=== PATIENT | female | born 1985 | race Hispanic/Latino ===

== ENCOUNTER 2016-11-01 16:49 | Inpatient (IN) | payer OTHER ==
[~2016-11-01] VITALS: Ht 165.1 cm; Wt 93.4 kg
[~2016-11-01 16:49] MED LIST: DICLEGIS DR 101 EACH PO; VITAFOL ULTRA1 EACH PO; ZOFRAN ODT4 M1 PO; ZOFRAN ODT4 M1 SL
[2016-11-01 17:38] LABS: ABSOLUTE BASOPHIL COUNT 0 /CUMM (0.0-0.2); ABSOLUTE EOSINOPHIL COUNT 0.1 /CUMM (0.0-0.7); ABSOLUTE GRANULOCYTE CT 6.9 /CUMM (1.4-6.5); ABSOLUTE LYMPH COUNT 1.8 /CUMM (1.2-3.4); ABSOLUTE MONOCYTE COUNT 0.8 /CUMM (0.10-0.60); BASOPHIL % 0.3 % (0.0-2.0); EOSINOPHIL % 0.6 % (0-5); GRANULOCYTE % 71.6 % (42.2-75.2); HEMATOCRIT 38.2 % (37-47); MEAN CORPUSCULAR HGB 29.8 PG (27.0-31.0); MEAN CORPUSCULAR VOLUME 87.8 FL (81.0-99.0); MEAN PLATELET VOLUME 11.9 FL (7.4-10.4); PLATELET COUNT 135 /CUMM (130-400); RBC DISTRIBUTION WIDTH 14.2 % (11.5-14.5); RED BLOOD CELL CT 4.35 /CUMM (4.20-5.40); WHITE BLOOD CELL COUNT 9.6 /CUMM (4.8-10.8)
--- NOTE | 2016-11-01 18:06 | History & Physical ---
General Information and HPI MD Statement: I have seen and personally examined SE MOLINA and documented this H&P. The patient is a 31 year old female at [36] weeks and [1] days gestation who presented with a chief complaint of [severe PIH]. History of Present Illness: 31yo lmp 02/08/16 edc 11/28/16 with severe PIH diagnosed by bps 160s/100s proteinuria and HELLP syndrome. care complete and unremarkable until now. 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 EENTM: Denies: blurred vision, double vision, visual changes. Cardiovascular: Reports: edema. Respiratory: Reports: no symptoms. GI: Reports: no symptoms. Genitourinary: Reports: no symptoms. Musculoskeletal: Reports: no symptoms. Skin: Reports: no symptoms. Neurological/Psychological: Reports: no symptoms. Hematologic/Endocrine: Reports: no symptoms. Immunologic/Allergic: Reports: no symptoms. All Other Systems: Reviewed and Negative Exam & Diagnostic Data Obstetric Exam Wgt Gained During : 40 Pelvimetry: gynecoid Dilation (cm): 0 Effacement (%): 0 Station: 0 Membranes: intact Fluid: unknown Fundal Height (cm): 37 Multiple Gestation? No Contractions: none Infant #1 - FHR Baseline: 140 Category: 1 Estimated Weight: 6.5 Presentation: cephalic Patient for Induction? Yes Berumen Score Berumen Score Response Value Cervix Position: anterior 2 Cervix Consistency: medium 1 Cervix Effacement: 0-30% 0 Cervix Dilation: closed 0 Total 3 Physical Exam: HEENT: NCAT Chest: CTA CV: nl S1S2 Abd: gravid, cephalic, 6.5 Ext: +3 edema Neuro: 2+ DTR Labs Blood Type & Rh: O pos Antibody Screen: Neg Hct/Hgb & Platelets #1: Hct/Hgb & Platelets #2: 183 Rubella: imm VDRL #1: nr VDRL #2: nr HbsAg: neg HIV #1: neg HIV #2 neg 1 Hr P Group B Strep: neg Initial Ultrasound: wnl Anatomy Ultrasound: wnl Ultrasound for EFW: na Genetic Testing: neg Assessment/Plan Assessment/Plan: severe PIH 36 weeks poor berumen score miso cervical ripening MgSO4 As Ranked By This Provider Problem List: 1. Pre-eclampsia, severe, antepartum Core Measures/Miscellaneous Hollins Catheter Date In: 11/01/16 Still Needed? Yes Venous Thromboembolism VTE Risk Factors: / VTE Contraindications: No Contraindications VTE Diagnosis: No VTE Type: NONE VTE Confirmed by (Test): NONE Beta Kishore Is Beta Kishore a Home Med? No If Yes, Was This Ordered Today? No Antibiotics Is Patient on Antibiotics? Yes If Yes: prophylaxis
--- NOTE | 2016-11-01 21:08 | PN- Obstetrical ---
Subjective Subjective: pt lightheaded on Magnesium; c/o headache Review of Systems: BPs 160s/110 labetolol 20mg iv x1 Objective Last 24 Hrs of Vital Signs/I&O 160s/110 Physical Exam: CTA DTRs 2+, +clonus Obstetric Exam Dilation (cm): 0 Effacement (%): 0 Station: 0 Membranes: intact Fluid: unknown Multiple Gestation? No Contractions: occ #1 - FHR Baseline: 140 Category: 1 Estimated Weight: 6.5 Presentation: cephalic Assessment/Plan Assessment/Plan severe PIH remote from delivery proceed with c/s; pt consents Problem List: 1. Pre-eclampsia, severe, antepartum
--- NOTE | 2016-11-01 21:56 | History & Physical ---
General Information and HPI MD Statement: I have seen and personally examined SE MOLINA and documented this H&P. The patient is a 31 year old F who presented with a patient stated chief complaint of [sever induced hypertension]. Source of Information: patient Exam Limitations: no limitations History of Present Illness: is a 31 yo women A2 at 36 weeks and 1 day, former smoker with PMHx. significant for narcolepsy, hernia s/p repair presented to childbirth center from clinic with a c/o sever induced hypertension. History was obtained from the patient, she report that she went today to her clinic for regular follow up, urine protein was checked and it was very high so, she was sent to Center for more evaluation. She report that she was seen at clinic last week, at that time her urine protein was not that high. Patient following regularly with clinic, her BP was within normal, she denies any high blood pressure prior to this pregancy. Patient also report noticing that she get swollen over the last week, which excessively getting worse, her symptoms also include sever nausea and vomiting over the last 2 days, associated with right back pain, she also feels chest tightness, headache and vision changes during the encounter. She report candidal infection during this . She denies any complication with her last delivery which was NVD at term. She quite smoking prior to this pregnacy, she denies any alcohol or drugs. Allergies/Medications Allergies: Coded Allergies: latex (RASH 06/09/16) Home Med list Doxylamine/Pyridoxine HCl (Diclegis Dr 10-10 MG Tablet) 10 MG-10 MG TABLET.DR 2 TAB PO QPM hyperemesis gravidarum Ondansetron (Zofran Odt) 4 MG TAB.RAPDIS 1 TAB SL TID PRN nasuea Pnv#67/Iron Ps/FA Cmb#1/Dha (Vitafol Ultra Softgel) 29 MG IRON-1 MG-200 MG CAPSULE 1 CAP PO DAILY (Reported) Past History Medical History Neurological: NONE EENT: NONE Cardiovascular: NONE Respiratory: NONE Gastrointestinal: NONE Hepatic: NONE Renal: NONE Musculoskeletal: NONE Psychiatric: NONE Endocrine: NONE Blood Disorders: NONE Cancer(s): NONE Other Medical Hx: Narcolepsy Surgical History Surgical History: non-contributory Past Family/Social History Family History Relations & Conditions if any FATHER FH: diabetes mellitus Psychosocial History Smoking Status: Former Smoker ETOH Use: denies use Illicit Drug Use: denies illicit drug use Employment History Employment Employed Profession/Employer Ban[employer] Review of Systems Review of Systems Constitutional: Reports: see HPI. EENTM: Reports: blurred vision. Respiratory: Reports: no symptoms. GI: Reports: no symptoms. Genitourinary: Reports: no symptoms. Musculoskeletal: Reports: back pain (right side). Neurological/Psychological: Reports: headache. Hematologic/Endocrine: Reports: no symptoms. All Other Systems: Reviewed and Negative Date of LMP: 02/08/16 Exam & Diagnostic Data Physical Exam General Appearance Alert, Oriented X3, Moderate Distress Skin No Rashes, No Breakdown, No Significant Lesion Skin Temp/Moisture Exam: Warm/Dry HEENT Atraumatic, PERRLA, EOMI, Mucous Membr. moist/pink Cardiovascular Normal S1, Normal S2, No Murmurs Lungs Clear to Auscultation, Normal Air Movement Neurological Reflexes 2+ Extremities Normal Pulses, edematous, +2 non-pitting Vascular Normal Pulses, Pulses Symmetrical Last 24 Hrs of Labs/Antoine: Laboratory Tests 11/01/16 1710: Ur Random Creatinine 94.1, U Random Total Protein 1071 H, Protein/Creatinin Ratio 11.3 H 11/01/16 1710: Estimated GFR > 60, Uric Acid 5.8, Total Bilirubin 0.5, Direct Bilirubin 0.2, AST 21, ALT 24, Lactate Dehydrogenase 663 H, CBC w Diff NO MAN DIFF REQ, RBC 4.35, MCV 87.8, MCH 29.8, RDW 14.2, MPV 11.9 H, Gran % 71.6, Lymphocytes % 18.9 L, Monocytes % 8.6, Eosinophils % 0.6, Basophils % 0.3, Absolute Granulocytes 6.9 H, Absolute Lymphocytes 1.8, Absolute Monocytes 0.8 H, Absolute Eosinophils 0.1, Absolute Basophils 0, PUBS MCHC 34.0, Urinalysis HEAVY H, Urine Color YEL, Urine Clarity CLEAR, Urine pH 6.0, Ur Specific [place] 1.020, Urine Protein >=300 H, Urine Ketones NEG, Urine Nitrite NEG, Urine Bilirubin NEG, Urine Urobilinogen 0.2, Ur Leukocyte Esterase NEG, Ur Microscopic SEDIMENT EXAMINED, Urine RBC 1-3, Urine WBC 1-3 H, Ur Epithelial Cells FEW, Urine Hemoglobin SMALL H, Urine Glucose NEG Microbiology 11/01 2050 URINE ROUT: Urine Culture - COLB 11/01 1829 URINE ROUT: Urine Culture - RECD Assessment/Plan Assessment: is a 31 yo women A2 at 36 weeks and 1 day, former smoker with PMHx. significant for narcolepsy, hernia s/p repair presented to childbirth center with sever induced hypertension, admitted for C/S. ICU consult was obtained to manage the patient BP during her stay in the ICU, seizure precaution and to monitor her Mg level. At [facility], her highest BP was 160s/110, she received a total of 2mg iv Labetalol x1, currently she is also on Mg ggt @50ml/hr Assessment: #Sever induced hypertension Plan: -Patient is going to C/S at 9:30 pm, and then she is going to be shifted to ICU for close monitor of her vitals while on Mg ggt. -Will decide about starting Labetalol ggt VS iv after the procedure -Will check Mg level Q4Hr, aim Mg level 6-9 Core Measures/Miscellaneous Severe Sepsis Severe Sepsis Present: No Septic Shock Septic Shock Present: No
[2016-11-02] VITALS: BP 125/74
--- NOTE | 2016-11-02 00:02 | Cons- CRCU ---
[facility] 2356: General Information and HPI Consulting Request Date of Consult: 11/01/16 Requested By: MARCOS OSMAN MD Reason for Consult: manage the patient BP during her stay in the ICU, seizure precaution and to monitor her Mg level. Source of Information: patient, family, old records Exam Limitations: no limitations History of Present Illness: is a 31 yo women A2 at 36 weeks and 1 day, former smoker with PMHx. significant for narcolepsy, hernia s/p repair presented to childbirth center from clinic with a c/o sever induced hypertension. History was obtained from the patient (We saw the petient prior to C/S), she report that she went today to her clinic for regular follow up, urine protein was checked and it was very high so, she was sent to Center for more evaluation. She report that she was seen at clinic last week, at that time her urine protein was not that high. Patient following regularly with clinic, her BP was within normal, she denies any high blood pressure prior to this pregancy. Patient also report noticing that she get swollen over the last week, which excessively getting worse, her symptoms also include sever nausea and vomiting over the last 2 days, associated with right back pain, she also feels chest tightness, headache and vision changes during the encounter. She report candidal infection during this . She denies any complication with her last delivery which was NVD at term. She quite smoking prior to this pregnacy, she denies any alcohol or drugs. Allergies/Medications Allergies: Coded Allergies: latex (RASH 06/09/16) Home Med List: Doxylamine/Pyridoxine HCl (Diclegis Dr 10-10 MG Tablet) 10 MG-10 MG TABLET.DR 2 TAB PO QPM hyperemesis gravidarum Ondansetron (Zofran Odt) 4 MG TAB.RAPDIS 1 TAB SL TID PRN nasuea Pnv#67/Iron Ps/FA Cmb#1/Dha (Vitafol Ultra Softgel) 29 MG IRON-1 MG-200 MG CAPSULE 1 CAP PO DAILY (Reported) Current Medications: Current Medications Sig/Sumaya Start time Last Medication Dose Route Stop Time Status Admin Cefazolin Sodium 2,000 MG ONCE ONE 11/01 2099 DC Sodium Chloride 100 ML IV 11/01 2128 Citric Acid/Sodium 30 ML .[0NCE] 11/01 2100 DC Citrate PO Diphenhydramine HCl 25 MG ONCE ONE 11/01 234 UNVr IV 11/01 234 Diphenhydramine HCl 50 MG Q6P PRN 11/01 224 AC IM Docusate Sodium 100 MG AT BEDTIME PRN 11/01 224 AC PO Enoxaparin Sodium 40 MG DAILY 11/02 1000 AC SC Hydromorphone HCl 50 MG ONE TIME ONE 11/01 2244 UNVr IV 11/01 224 Ibuprofen 800 MG Q6P PRN 11/01 224 AC PO Labetalol HCl 20 MG ONCE ONE 11/01 2014 DC IV 11/01 2016 Lactated Ringer's 1,000 ML Q8H 11/01 224 AC IV Lactated Ringer's 1,000 ML Q8H 11/01 1800 DC IV Magnesium Hydroxide 30 ML DAILY NEEDED PRN 11/01 224 AC PO Magnesium Sulfate 40 GM Q20H 11/01 224 AC Sterile Water 1,000 ML IV Magnesium Sulfate 6 GM ONE ONE 11/01 1800 DC Sodium Chloride 100 ML IV 11/01 1832 Magnesium Sulfate 40 GM Q20H 11/01 1800 CAN Sterile Water 1,000 ML IV Misoprostol 25 MCG Q4P PRN 11/01 1800 DC VAG Oxycodone/ 1 TAB Q4P PRN 11/01 224 AC Acetaminophen PO Oxycodone/ 2 TAB Q4P PRN 11/01 224 AC Acetaminophen PO Oxytocin 20 UNITS Q8H 11/01 224 AC Lactated Ringer's 1,000 ML IV 11/02 0644 Oxytocin 10 UNITS ONCE ONE 11/01 2244 DC IM 11/01 2245 Promethazine HCl 25 MG Q4P PRN 11/01 224 AC IM 11/03 2243 Review of Systems Review of Systems Constitutional: Reports: see HPI. EENTM: Reports: no symptoms, blurred vision. Cardiovascular: Reports: no symptoms. Respiratory: Reports: no symptoms. GI: Reports: no symptoms. Genitourinary: Reports: no symptoms. Musculoskeletal: Reports: back pain (right side). Neurological/Psychological: Reports: headache. Hematologic/Endocrine: Reports: no symptoms. All Other Systems: Reviewed and Negative Past History Medical History Neurological: NONE EENT: NONE Cardiovascular: NONE Respiratory: NONE Gastrointestinal: NONE Hepatic: NONE Renal: NONE Musculoskeletal: NONE Psychiatric: NONE Endocrine: NONE Blood Disorders: NONE Cancer(s): NONE Other Medical Hx: Narcolepsy Surgical History Surgical History: non-contributory Family History Relations & Conditions If Any: FATHER FH: diabetes mellitus Psychosocial History Smoking Status: Former Smoker ETOH Use: denies use Illicit Drug Use: denies illicit drug use Employment History Employment: Employed Profession/Employer: [employer] Exam & Diagnostic Data Last 24 Hrs of Vital Signs/I&O Vital Signs Date Time Temp Pulse Resp B/P B/P Pulse O2 O2 Flow FiO2 Mean Ox Delivery Rate 11/02 0400 97.4 70 10 124/85 96 Room Air 11/02 0356 96 Room Air 11/02 0115 97.4 11/02 0000 97.2 76 14 125/74 96 Room Air 11/01 2030 98.2 68 18 180/100 Intake & Output 11/02 1600 11/02 0800 11/02 0000 Intake Total 1044 Output Total 950 Balance 94 Intake, IV 1044 Intake, Oral 0 Number 0 Bowel Movements Output, Urine 950 Patient 206 lb Weight Weight Bed scale Measurement Method Physical Exam General Appearance: alert, awake, comfortable Head: atraumatic, normal appearance Eyes: Bilateral: normal appearance, PERRL, EOMI. Respiratory: normal breath sounds, chest non-tender, no respiratory distress Cardiovascular: regular rate/rhythm, edema, normal peripheral pulses Peripheral Pulses: 2+ dorsalis pedis (R), 2+ dorsalis pedis (L) Gastrointestinal: normal bowel sounds Extremities: normal inspection, normal capillary refill, Normal pulses, edematous, +2 non-pitting edema Last 48 Hrs of Labs/Antoine: Laboratory Tests 11/01/16 1710: Ur Random Creatinine 94.1, U Random Total Protein 1071 H, Protein/Creatinin Ratio 11.3 H 11/01/16 1710: Estimated GFR > 60, Uric Acid 5.8, Total Bilirubin 0.5, Direct Bilirubin 0.2, AST 21, ALT 24, Lactate Dehydrogenase 663 H, CBC w Diff NO MAN DIFF REQ, RBC 4.35, MCV 87.8, MCH 29.8, RDW 14.2, MPV 11.9 H, Gran % 71.6, Lymphocytes % 18.9 L, Monocytes % 8.6, Eosinophils % 0.6, Basophils % 0.3, Absolute Granulocytes 6.9 H, Absolute Lymphocytes 1.8, Absolute Monocytes 0.8 H, Absolute Eosinophils 0.1, Absolute Basophils 0, PUBS MCHC 34.0, Urinalysis HEAVY H, Urine Color YEL, Urine Clarity CLEAR, Urine pH 6.0, Ur Specific [place] 1.020, Urine Protein >=300 H, Urine Ketones NEG, Urine Nitrite NEG, Urine Bilirubin NEG, Urine Urobilinogen 0.2, Ur Leukocyte Esterase NEG, Ur Microscopic SEDIMENT EXAMINED, Urine RBC 1-3, Urine WBC 1-3 H, Ur Epithelial Cells FEW, Urine Hemoglobin SMALL H, Urine Glucose NEG Assessment/Plan Impression/Plan: is a 31 yo women A2 at 36 weeks and 1 day, former smoker with PMHx. significant for narcolepsy, hernia s/p repair presented to childbirth center with sever induced hypertension, admitted for C/S. ICU consult was obtained to manage the patient BP during her stay in the ICU, seizure precaution and to monitor her Mg level. At [facility], her highest BP was 160s/110, she received a total of 2mg iv Labetalol x1, currently she is also on Mg ggt @50ml/hr Patient was evaluated prior to C/S and after she was transfered to ICU Assessment: #Sever induced hypertension (Pre-eclampsia) Plan: -She is now s/p C/S, she is extubated after the procedure, she is awake, alert, orientedx3, her symptoms (headache, vision changes, left back pain had resolved) , she is shifted to ICU for close monitoring of her vitals while on Mg ggt. -Her BP at ICU is very well controlled, on the monitor is 125/74mmgh, for now will hold on Labetalol. Will evaluate her at am and decide about Labetalol dose. -Will check Mg level Q4Hr, aim Mg level 6-9, next ICU lab bundle at 12:30 midnight. DVT ppx: SC Lovenox Full code Problem List: 1. Pre-eclampsia, severe Consult Acknowledgment - Thank you for your consult request. MARGARET LACKEY, [facility] 11/02/16 0329: Assessment/Plan Consult Acknowledgment - Thank you for your consult request. Attending Review Statement Attending Statement Attending Statement: examined this patient, discuss w/resident/PA/[employer]ER [employer] CRUSHER TENDER, agreed w/resident/PA/WASHER AND CRUSHER TENDER, discussed with family Attending Assessment/Plan: 31 yo F with a h/o narcolepsy, asthma, A2 currently at 36 weeks gestation was at her usual follow up OB appointment, when she was noted to have a BP of 160/100s, with proteinuria indicative of pre-eclampsia. She was admitted to [facility] for elective . She c/o frontal headache, chest tightness, dyspnea, nausea and vomiting for the past 2 days. She also reports bilateral LE edema. She denies epigastric pain, visual symptoms or seizure. On her clinic visit 1 week ago, her BP was normal and urine did not show significant proteinuria. Previous (NVD) was not complicated by PIH or gestational diabetes. She has no prior diagnosis of hypertension and has never had any cardiac problems. Patient was admitted to [facility], IV magnesium sulfate drip was initiated for prevention of eclampsia, IV labetalol given and critical care consult was requested by Dr. Osorio for BP management post . was planned for 9.30 pm. We evaluated the patient in [facility] at 9 pm. Vitals: afebrile, HR 60-70's, BP 154/90-100's. Exam: AAO, in mild distress, MMM, pupils equal and RTL, no pallor or icterus. Neck supple. Chest b/l clear, Heart S1S2 regular, Abd gravid uterus. LE 3+ pitting pedal edema. Labs: LFTs normal, LDH 663, creat 0.7, uric acid 5.8. UA proteinuria. 1. Pre-eclampsia s/p now. ICU monitoring overnight. Patient was re- evaluated by me at 1 AM in the ICU. BP now was 125/74, will continue mag sulfate drip per protocol. Check magnesium levels Q4 hours and target around 6 8. Monitor clonus and reflexes. Initiate PO labetalol 100 BID, no need for drip at present. IV fluids. Pain management. Repeat labs (ICU bundle) at midnight and in AM. Obtain baseline EKG and echocardiogram. Check troponin. Patient reports her headache, chest tightness and dyspnea have resolved. She c/o diffuse itching, no obvious visualised rash. Will give benadryl for relief. DVT ppx Lovenox. Full code. TTS > 40 mins
--- NOTE | 2016-11-02 02:59 | NUR ---
2300 PT WAS TRANSFERRED FROM [facility] S/P TO RM 112. DX: PRE-ECLAMPSIA. PT HAD A & GAVE TO BABY GIRL. THE BABY GIRL IS IN THE NURSERY WHILE THE MOTHER/PT IS CLOSING MONITOR IN THE ICU FOR >BP & ON MG GTT @ 2G/HR/ FREQ LABS TO CHECK THE MAGNESIUM LEVEL. WHILE ON THE MG GTT CONTINUPOS MONITORING THE CLONUS+VE TO MIKY FEET, +REFLEXES TO MIKY BRANCIAL. ALSO INFUSING PITOCIN GTT 50ML/HR & LR 25ML/HR PER DR. OSMAN & [facility] POLICY PT WILL RECEIVE A TOTAL IVF OF 125ML/HR. REC'D REPORT FROM SHELDON CHAVIS IN [facility]. DID INITIAL MG FLOWHEET & DEMONSTRATED TO RN/MYSELF RE. POST ASSESSMENTS, LOCHIA & MG PROTOCOL. NO C/O PAIN AT THIS TIME BUT WAS C/O ITCHINESS CHEST/TORSO AREA. INFORMED DR. CORREA RE. VS/STATUS. ORDERS GIVEN. BENADRYL IV 25MG GIVEN EARLIER. AFTER 1 HR PT STILL ITCHY. ANOTHER DOSE OF BENADRYL IV ORDER. SEE EMAR. AT BEDSIDE WILL BE ROOMING IN. CALLED FOR A COT. 0035 ICU PANEL DONE & SENT 0100 MG 4.6 0200 ASSESSMENT DONE Q1HR FOR MG GTT PROTOCOL. C/O ABD PAIN 7/[address] SC[address] CORREA. DILAUDID 10 0.6MG IVP GIVEN SEE EMAR. HAD MOD MOD AMT OF LOCHIA PERICARE GIVEN & PLACED MAXI PAD. FUNDUS AT THE 2 FINGER BREATH BELOW THE UMBILICAL, MASSAGE DONE. SETTLED BACK TO BED. CONT TO MONITOR.
[2016-11-02 04:00] VITALS: BP 124/85
[2016-11-02 06:41] LABS: ABSOLUTE BASOPHIL COUNT 0 /CUMM (0.0-0.2); ABSOLUTE EOSINOPHIL COUNT 0.1 /CUMM (0.0-0.7); ABSOLUTE GRANULOCYTE CT 8.8 /CUMM (1.4-6.5); ABSOLUTE LYMPH COUNT 2.1 /CUMM (1.2-3.4); ABSOLUTE MONOCYTE COUNT 0.9 /CUMM (0.10-0.60); BASOPHIL % 0.2 % (0.0-2.0); EOSINOPHIL % 0.9 % (0-5); GRANULOCYTE % 73.8 % (42.2-75.2); HEMATOCRIT 36.4 % (37-47); MEAN CORPUSCULAR HGB 29.9 PG (27.0-31.0); MEAN CORPUSCULAR VOLUME 87.9 FL (81.0-99.0); MEAN PLATELET VOLUME 11.6 FL (7.4-10.4); PLATELET COUNT 138 /CUMM (130-400); RBC DISTRIBUTION WIDTH 13.5 % (11.5-14.5); RED BLOOD CELL CT 4.15 /CUMM (4.20-5.40); WHITE BLOOD CELL COUNT 11.9 /CUMM (4.8-10.8)
[2016-11-02 06:47] LABS: PT 9.8 SEC (9.4-12.5)
--- NOTE | 2016-11-02 07:40 | Cons- CRCU ---
LAURITA QURESHI MD 11/02/16 0740: General Information and HPI Consulting Request Date of Consult: 11/02/16 Requested By: Dr. Jeremy MD Reason for Consult: Peripartum hypertension and preeclampsia Source of Information: patient, old records Exam Limitations: no limitations History of Present Illness: Ms. Judd is a 31 year old A2 with PMH significant for narcolepsy and asthma. Heather is s/p at 36 weeks due to preeclampsia and - induced hypertension. Yesterday, patient had routine follow up at her coper hand when she was found to be hypertensive to 160s/100s with proteinuria , indicative of pre-eclampsia. She was admitted to the [facility] for elective . At time of admission, she was noted to have frontal headache, shortness of breath, slight chest tightness, nausea/vomiting for 2 days and bilateral lower extremity edema for about 2 weeks prior to admission. There was no report of visual changes, seizure, prior - induced hypertension or gestational diabetes mellitus. On evaluation this morning following cesarian section, patient continued to endorse 4/10 frontal headache and slight abdominal discomfort in the area of her surgical incision; she denied visual changes, epigastric pain, nausea, vomiting or weakness. Allergies/Medications Allergies: Coded Allergies: latex (RASH 06/09/16) Home Med List: Doxylamine/Pyridoxine HCl (Diclegis Dr 10-10 MG Tablet) 10 MG-10 MG TABLET.DR 2 TAB PO QPM hyperemesis gravidarum Ondansetron (Zofran Odt) 4 MG TAB.RAPDIS 1 TAB SL TID PRN nasuea Pnv#67/Iron Ps/FA Cmb#1/Dha (Vitafol Ultra Softgel) 29 MG IRON-1 MG-200 MG CAPSULE 1 CAP PO DAILY (Reported) Current Medications: Current Medications Sig/Sumaya Start time Last Medication Dose Route Stop Time Status Admin Acetaminophen 1,000 MG ONCE ONE 11/02 0005 DC 11/02 N/A 1 UNIT IV 11/02 0019 0016 Acetaminophen 1,000 MG .STK-MED ONE 11/01 1806 DC IV 11/01 1807 Cefazolin Sodium 2,000 MG ONCE ONE 11/01 2100 DC 11/01 Sodium Chloride 100 ML IV 11/01 Cefazolin Sodium 2 GM .STK-MED ONE 11/01 2048 DC IV 11/01 2049 Citric Acid/Sodium 30 ML .[0NCE] 11/01 2100 DC Citrate PO Dextrose 25 GM ONCE ONE 11/02 0845 DC 11/02 IV 11/02 0846 0846 Diphenhydramine HCl 25 MG ONCE ONE 11/02 0115 DC 11/02 IV 11/02 0116 0202 Diphenhydramine HCl 25 MG ONCE ONE 11/01 2345 DC 11/01 IV 11/01 2346 2357 Diphenhydramine HCl 50 MG Q6P PRN 11/01 2245 AC 11/02 IM 0514 Docusate Sodium 100 MG AT BEDTIME PRN 11/01 2245 AC PO Enoxaparin Sodium 40 MG DAILY 11/02 1000 AC 11/02 SC 0923 Fentanyl Citrate 100 MCG .STK-MED ONE 11/01 2125 DC IM 11/01 2126 Hydromorphone HCl 0.6 MG ONCE ONE 11/02 0215 DC 11/02 IV 11/02 0216 0203 Hydromorphone HCl 50 MG ONE TIME ONE 11/01 2245 CAN IV 11/01 2246 Hydroxyzine HCl 100 MG .STK-MED ONE 11/01 2002 DC PO 11/01 2003 Ibuprofen 800 MG Q6P PRN 11/01 2245 AC 11/02 PO 0800 Ketorolac 30 MG ONCE ONE 11/02 0015 DC 11/01 Tromethamine IV 11/02 0016 2100 Ketorolac 30 MG .STK-MED ONE 11/01 2111 DC Tromethamine IM 11/01 2112 Labetalol HCl 100 MG BID 11/02 1000 AC 11/02 PO 0923 Labetalol HCl 20 MG ONCE ONE 11/01 2015 DC 05 IV 11/01 2016 2030 Lactated Ringer's 1,000 ML Q8H 11/01 2245 AC 11/02 IV 0823 Lactated Ringer's 1,000 ML Q8H 11/01 1800 DC IV Magnesium Hydroxide 30 ML DAILY NEEDED PRN 11/01 2245 AC PO Magnesium Sulfate 40 GM Q20H 11/01 2245 AC 11/01 Sterile Water 1,000 ML IV 2245 Magnesium Sulfate 6 GM ONE ONE 11/01 1800 DC 11/01 Sodium Chloride 100 ML IV 11/01 1832 1830 Magnesium Sulfate 40 GM Q20H 11/01 1800 CAN Sterile Water 1,000 ML IV Midazolam HCl 5 MG .STK-MED ONE 11/01 2159 DC IM 11/01 2199 Misoprostol 25 MCG Q4P PRN 11/01 1800 DC VAG Morphine Sulfate 10 MG .STK-MED ONE 11/014 DC IV 11/01 2124 Oxycodone/ 1 TAB Q4P PRN 11/01 2244 AC Acetaminophen PO Oxycodone/ 2 TAB Q4P PRN 11/01 2244 AC Acetaminophen PO Oxytocin 20 UNITS Q8H 11/01 2245 DC 11/01 Lactated Ringer's 1,000 ML IV 11/02 06 224 Oxytocin 10 UNITS ONCE ONE 11/01 2244 DC 11/01 IM 11/01 224 2210 Promethazine HCl 25 MG Q4P PRN 11/01 2244 AC IM 11/03 2243 Review of Systems Review of Systems Constitutional: Denies: chills, fever, weakness. EENTM: Denies: blurred vision, double vision, visual changes, nasal congestion. Cardiovascular: Reports: edema, peripheral edema. Denies: chest pain, palpitations. Respiratory: Reports: short of breath (Very slight, improved). Denies: sputum production, wheezing. GI: Reports: abdominal pain (Along incision site). Denies: nausea, vomiting. Genitourinary: Denies: dysuria. Musculoskeletal: Denies: back pain, neck pain. Skin: Denies: rash. Neurological/Psychological: Reports: headache. Denies: confusion, numbness. Hematologic/Endocrine: Denies: bruising, bleeding. Immunologic/Allergic: Denies: splenectomy. 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 Home Services at Home: None Smoking Status: Former Smoker ETOH Use: denies use Illicit Drug Use: denies illicit drug use Functional Ability ADLs Independent: dressing, eating, toileting, bathing. Ambulation: independent IADLs Independent: shopping, housework, finances, food prep, telephone, transportation , medication admin. Employment History Employment: Employed Profession/Employer: [employer] Exam & Diagnostic Data Last 24 Hrs of Vital Signs/I&O Vital Signs Date Time Temp Pulse Resp B/P B/P Pulse O2 O2 Flow FiO2 Mean Ox Delivery Rate 11/02 08 98 Room Air 11/02 0800 97.5 74 11 126/88 97 Room Air 11/02 0400 97.4 70 10 124/85 96 Room Air 11/02 0356 96 Room Air 11/02 0115 97.4 11/02 0000 97.2 76 14 125/74 96 Room Air 11/01 2030 98.2 68 18 180/100 Intake & Output 11/02 1600 11/02 0800 11/02 0000 Intake Total 1044 Output Total 950 Balance 94 Intake, IV 1044 Intake, Oral 0 Number 0 Bowel Movements Output, Urine 950 Patient 206 lb Weight Weight Bed scale Measurement Method Physical Exam General Appearance: well developed/nourished, no apparent distress, alert, awake , comfortable Head: atraumatic, normal appearance Eyes: Bilateral: normal appearance, EOMI. Ears, Nose, Throat: normal ENT inspection, hearing grossly normal, moist mucus membranes Neck: normal inspection, supple, full range of motion Respiratory: normal breath sounds, chest non-tender, no respiratory distress Cardiovascular: regular rate/rhythm, normal peripheral pulses Breasts Breast appear nl Gastrointestinal: soft, non-tender, Incision covered with dry gauze Extremities: normal capillary refill, pedal edema, 2+ bilateral edema of feet noted, ALPS on Neurologic/Psych: awake, alert, oriented x 3, normal mood/affect, No clonus appreciated on DTR Cranial Nerves: normal hearing, normal speech, No facial drooping Reflexes: 2+: knee (R), knee (L). Skin: intact, normal color, warm/dry Lymphatic: no anterior cervical carlos Last 48 Hrs of Labs/Antoine: Laboratory Tests 11/02/16 0620: Anion Gap 6, Estimated GFR > 60, Glucose 64 L, Calcium 7.4 L, Phosphorus 5.3 H, Magnesium 5.4 H, Total Bilirubin 0.5, AST 26, ALT 27, Troponin I < 0.01, Albumin 2.4 L, PT 9.8, INR 0.93, CBC w Diff NO MAN DIFF REQ, RBC 4.15 L, MCV 87.9, MCH 29.9, RDW 13.5, MPV 11.6 H, Gran % 73.8, Lymphocytes % 17.9 L, Monocytes % 7.2, Eosinophils % 0.9, Basophils % 0.2, Absolute Granulocytes 8.8 H, Absolute Lymphocytes 2.1, Absolute Monocytes 0.9 H, Absolute Eosinophils 0.1 , Absolute Basophils 0, PUBS MCHC 34.0 11/02/16 0035: Anion Gap 8, Estimated GFR > 60, Glucose 71, Calcium 7.7 L, Phosphorus 4.8 H, Magnesium 4.6 H, Total Bilirubin 0.3, AST 21, ALT 30, Troponin I < 0.01, Albumin 2.3 L 11/01/16 1710: Ur Random Creatinine 94.1, U Random Total Protein 1071 H, Protein/Creatinin Ratio 11.3 H 11/01/16 1710: Estimated GFR > 60, Uric Acid 5.8, Total Bilirubin 0.5, Direct Bilirubin 0.2, AST 21, ALT 24, Lactate Dehydrogenase 663 H, CBC w Diff NO MAN DIFF REQ, RBC 4.35, MCV 87.8, MCH 29.8, RDW 14.2, MPV 11.9 H, Gran % 71.6, Lymphocytes % 18.9 L, Monocytes % 8.6, Eosinophils % 0.6, Basophils % 0.3, Absolute Granulocytes 6.9 H, Absolute Lymphocytes 1.8, Absolute Monocytes 0.8 H, Absolute Eosinophils 0.1, Absolute Basophils 0, PUBS MCHC 34.0, Urinalysis HEAVY H, Urine Color YEL, Urine Clarity CLEAR, Urine pH 6.0, Ur Specific [place] 1.020, Urine Protein >=300 H, Urine Ketones NEG, Urine Nitrite NEG, Urine Bilirubin NEG, Urine Urobilinogen 0.2, Ur Leukocyte Esterase NEG, Ur Microscopic SEDIMENT EXAMINED, Urine RBC 1-3, Urine WBC 1-3 H, Ur Epithelial Cells FEW, Urine Hemoglobin SMALL H, Urine Glucose NEG Diagnostic Data EKG Results NSR HR 72 bpm, MN 160, QTC 465, T wave inversions V1-V2, normal axis. Assessment/Plan Impression/Plan: Ms. Judd is a 31 year old female with PMH narcolepsy and asthma who is currently in the ICU for management of peripartum hypertension in the setting of preeclampsia. Vital signs on presentation: afebrile. HR 60-70s, BP 154-100s. Labs showed an unremarkable CBC and a BEP with Na 135, K 3.9, Cl 108, HCO3 19, BUN/cre 12/0.6, Glu 71, Mag 4.6, LDH 663 and troponin <0.01. Patient is currently in the ICU and the following is the management: 1. Peripartum hypertension in the setting of ecclampsia * Patient is currently post-cesarian section and tolerated procedure well * She has been started on 100 mg PO BID labetolol for BP control and BP much better at present time * Optimize pain control with 2 tab percocet for severe pain, 1 tab percocet for mdoferate and motrin for mild pain * Cardio consult placed and appreciated * Echo pending, f/u results * ECG showed subtle T wave inversions in V1-V2, likely normal varient as per cardio * Patient to follow up after discharge with Dr. Jimmy MD * Patient will likely be downgraded back to child [facility] if she continues to do well 2. Preeclampsia * Management as per Dr. Jeremy MD * Continue neurochecks, patient no longer has evidence of clonus on DTRs * Continue mag sulfate infusion with goal between 5-9 * F/U 1 PM ICU bundle and mag level 3. DVT prophylaxis * Continue ALPS and 4. History of asthma * TRC as needed * Continue albuterol Q4P for shortness of breath FULL CODE DVTP: Lovenox and ALPS Diet: FULL Mild to severe pain pathway Recommendations: See above. Consult Acknowledgment - Thank you for your consult request. LOBO BA MD 11/02/16 0900: Assessment/Plan Other Findings/Comments: Lobo Hernandez M.D. have examined this patient, reviewed available EMR data, personally reviewed images, discussed with resident/PA/ASSISTANT STORE DIRECTOR, discussed management plan with housestaff and nursing staff, discussed managment plan all of healthcare providers, discussed management plan with patient and/or family, agreed with resident/PA/ASSISTANT STORE DIRECTOR. The past history and parts of the chart have been autopopulated. Impression 31 year old woman * pre-eclampsia resulting in a delivery at 36 weeks gestation * hypertension now improved with beta blockade (labetalol) Plan - ECHO, cardiology input - cont meds with holding parameters - mag drip per protocol with monitoring of mag levels - if does well, can be dg back to childbirth DVT prophylaxis at all times TTS 40 min Consult Acknowledgment - Thank you for your consult request.
[2016-11-02 08:00] VITALS: BP 126/88
--- NOTE | 2016-11-02 08:45 | NUR ---
PT BS =68, AWARE, 1 AMP D50 GIVEN IV, WILL CONT TO MON
--- NOTE | 2016-11-02 09:40 | NUR ---
REPEAT BS=92, PT STARTED ON FULL LIQ DIET
--- NOTE | 2016-11-02 09:49 | Cons- Cardiology ---
General Information and HPI Consulting Request Date of Consult: 11/02/16 Requested By: ANGELICA LOPEZ MD,MARCOS; SHRUTHI BA MD Reason for Consult: PERIPARTUM HTN; ABNORMAL ECG Source of Information: patient, old records Exam Limitations: no limitations History of Present Illness: The patient is a 31-year-old female who is in the ICU with peripartum hypertension. According to the patient, her prior 10 years ago did not have any evidence of hypertensive issues. The patient has been feeling okay otherwise. She denies any chest pain short's breath or other cardiac symptoms at the present time. At the moment, her blood pressure is much better controlled on labetalol. I was asked see the patient for assistance with management of her blood pressure and for assistance with outpatient blood pressure follow-up. Allergies/Medications Allergies: Coded Allergies: latex (RASH 06/09/16) Home Med List: Doxylamine/Pyridoxine HCl (Diclegis Dr 10-10 MG Tablet) 10 MG-10 MG TABLET.DR 2 TAB PO QPM hyperemesis gravidarum Ondansetron (Zofran Odt) 4 MG TAB.RAPDIS 1 TAB SL TID PRN nasuea Pnv#67/Iron Ps/FA Cmb#1/Dha (Vitafol Ultra Softgel) 29 MG IRON-1 MG-200 MG CAPSULE 1 CAP PO DAILY (Reported) Current Medications: Current Medications Sig/Sumaya Start time Last Medication Dose Route Stop Time Status Admin Acetaminophen 1,000 MG ONCE ONE 11/02 0005 DC 11/02 N/A 1 UNIT IV 11/02 0019 0016 Acetaminophen 1,000 MG .STK-MED ONE 11/01 1806 DC IV 11/01 180 Cefazolin Sodium 2,000 MG ONCE ONE 11/01 2099 DC 11/01 Sodium Chloride 100 ML IV 11/01 2128 2115 Cefazolin Sodium 2 GM .STK-MED ONE 11/02 2047 DC IV 11/01 2048 Citric Acid/Sodium 30 ML .[0NCE] 11/01 2099 DC Citrate PO Dextrose 25 GM ONCE ONE 11/02 0845 DC 11/02 IV 11/02 0846 0846 Diphenhydramine HCl 25 MG ONCE ONE 11/02 0115 DC 11/02 IV 11/02 0116 0202 Diphenhydramine HCl 25 MG ONCE ONE 11/01 2345 DC 11/01 IV 11/01 2346 2357 Diphenhydramine HCl 50 MG Q6P PRN 11/01 2245 AC 11/02 IM 0514 Docusate Sodium 100 MG AT BEDTIME PRN 11/01 2245 AC PO Enoxaparin Sodium 40 MG DAILY 11/02 1000 AC 11/02 SC 0923 Fentanyl Citrate 100 MCG .STK-MED ONE 11/01 2124 DC IM 11/01 212 Hydromorphone HCl 0.6 MG ONCE ONE 11/02 0215 DC 11/02 IV 11/02 0216 0203 Hydromorphone HCl 50 MG ONE TIME ONE 11/01 2245 CAN IV 11/01 224 Hydroxyzine HCl 100 MG .STK-MED ONE 11/01 2001 DC PO 11/01 2003 Ibuprofen 800 MG Q6P PRN 11/01 2245 AC 11/02 PO 0800 Ketorolac 30 MG ONCE ONE 11/02 0015 DC 11/01 Tromethamine IV 11/02 0016 2100 Ketorolac 30 MG .STK-MED ONE 11/01 2110 DC Tromethamine IM 11/01 211 Labetalol HCl 100 MG BID 11/02 1000 AC 11/02 PO 0923 Labetalol HCl 20 MG ONCE ONE 11/01 2015 DC 11/01 IV 11/01 2016 2030 Lactated Ringer's 1,000 ML Q8H 11/01 2245 AC 11/02 IV 0823 Lactated Ringer's 1,000 ML Q8H 11/01 1800 DC IV Magnesium Hydroxide 30 ML DAILY NEEDED PRN 11/01 2245 AC PO Magnesium Sulfate 40 GM Q20H 11/01 2245 AC 11/01 Sterile Water 1,000 ML IV 2245 Magnesium Sulfate 6 GM ONE ONE 11/01 1800 DC 11/01 Sodium Chloride 100 ML IV 11/01 1832 1830 Magnesium Sulfate 40 GM Q20H 11/01 1800 CAN Sterile Water 1,000 ML IV Midazolam HCl 5 MG .STK-MED ONE 11/01 2159 DC IM 11/01 2200 Misoprostol 25 MCG Q4P PRN 11/01 1800 DC VAG Morphine Sulfate 10 MG .STK-MED ONE 11/014 DC IV 11/01 212 Oxycodone/ 1 TAB Q4P PRN 11/01 224 AC Acetaminophen PO Oxycodone/ 2 TAB Q4P PRN 05/09 2245 AC Acetaminophen PO Oxytocin 20 UNITS Q8H 11/01 2244 DC 11/01 Lactated Ringer's 1,000 ML IV 11/02 Oxytocin 10 UNITS ONCE ONE 11/01 2244 DC 11/01 IM 11/01 Promethazine HCl 25 MG Q4P PRN 11/01 2244 AC IM 11/03 2243 Past History Medical History Blood Transfusion Hx: No Neurological: NARCOLEPSY EENT: NONE Cardiovascular: NONE Respiratory: asthma Gastrointestinal: NONE Hepatic: NONE Renal: NONE Musculoskeletal: NONE Psychiatric: NONE Endocrine: NONE Blood Disorders: NONE Cancer(s): NONE 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 & Diagnostic Data Vital Signs and I&O Vital Signs Date Time Temp Pulse Resp B/P B/P Pulse O2 O2 Flow FiO2 Mean Ox Delivery Rate 11/03 799 98 Room Air 11/02 08 97.5 74 11 126/88 97 Room Air 11/02 0400 97.4 70 10 124/85 96 Room Air 11/02 0356 96 Room Air 11/02 0115 97.4 11/02 0000 97.2 76 14 125/74 96 Room Air 11/01 2030 98.2 68 18 180/100 Intake & Output 11/02 1600 11/02 0811/02 0000 11/01 1600 11/01 0000 Intake Total 1044 Output Total 950 Balance 94 Intake, IV 1044 Intake, Oral 0 Number 0 Bowel Movements Output, Urine 950 Patient 206 lb Weight Weight Bed scale Measurement Method Physical Exam: General Appearance: alert, awake, comfortable Head: Normal Eyes: Normal Respiratory: normal breath sounds, chest non-tender, no respiratory distress Cardiovascular: regular rate/rhythm, edema, normal peripheral pulses, 1/6 systolic murmur, soft S4 Peripheral Pulses: Normal bilaterally Gastrointestinal: normal bowel sounds Extremities: normal inspection, normal capillary refill, Normal pulses, edematous, 1+ non-pitting edema Labs/Antoine Results: Laboratory Tests 11/02 11/02 11/01 0620 0035 1710 Chemistry Sodium (137 - 145 mmol/L) 134 L 135 L Potassium (3.5 - 5.1 mmol/L) 4.5 3.9 Chloride (98 - 107 mmol/L) 107 108 H Carbon Dioxide (22 - 30 mmol/L) 22 19 L Anion Gap (5 - 16) 6 8 BUN (7 - 17 mg/dL) 10 12 Creatinine (0.5 - 1.0 mg/dL) 0.6 0.6 Estimated GFR (>60 ml/min) > 60 > 60 Glucose (65 - 99 mg/dL) 64 L 71 Calcium (8.4 - 10.2 mg/dL) 7.4 L 7.7 L Phosphorus (2.5 - 4.5 mg/dL) 5.3 H 4.8 H Magnesium (1.6 - 2.3 mg/dL) 5.4 H 4.6 H Total Bilirubin (0.2 - 1.3 mg/dL) 0.5 0.3 AST (14 - 36 U/L) 26 21 ALT (9 - 52 U/L) 27 30 Troponin I (< 0.11 ng/ml) < 0.01 < 0.01 Albumin (3.5 - 5.0 g/dL) 2.4 L 2.3 L Coagulation PT (9.4 - 12.5 SEC) 9.8 INR (0.90 - 1.19) 0.93 Hematology CBC w Diff NO MAN DIFF REQ WBC (4.8 - 10.8 /CUMM) 11.9 H RBC (4.20 - 5.40 /CUMM) 4.15 L Hgb (12.0 - 16.0 G/DL) 12.4 Hct (37 - 47 %) 36.4 L MCV (81.0 - 99.0 FL) 87.9 MCH (27.0 - 31.0 PG) 29.9 RDW (11.5 - 14.5 %) 13.5 Plt Count (130 - 400 /CUMM) 138 MPV (7.4 - 10.4 FL) 11.6 H Gran % (42.2 - 75.2 %) 73.8 Lymphocytes % (20.5 - 51.1 %) 17.9 L Monocytes % (1.7 - 9.3 %) 7.2 Eosinophils % (0 - 5 %) 0.9 Basophils % (0.0 - 2.0 %) 0.2 Absolute Granulocytes (1.4 - 6.5 /CUMM) 8.8 H Absolute Lymphocytes (1.2 - 3.4 /CUMM) 2.1 Absolute Monocytes (0.10 - 0.60 /CUMM) 0.9 H Absolute Eosinophils (0.0 - 0.7 /CUMM) 0.1 Absolute Basophils (0.0 - 0.2 /CUMM) 0 PUBS MCHC (33.0 - 37.0 G/DL) 34.0 Urines Ur Random Creatinine (mg/dL) 94.1 U Random Total Protein (0 - 12 mg/dL) 1071 H Protein/Creatinin Ratio (< 0.2) 11.3 H / 1710 Chemistry Creatinine (0.5 - 1.0 mg/dL) 0.7 Estimated GFR (>60 ml/min) > 60 Uric Acid (2.5 - 6.2 mg/dL) 5.8 Total Bilirubin (0.2 - 1.3 mg/dL) 0.5 Direct Bilirubin (< 0.4 mg/dL) 0.2 AST (14 - 36 U/L) 21 ALT (9 - 52 U/L) 24 Lactate Dehydrogenase (313 - 618 U/L) 663 H Hematology CBC w Diff NO MAN DIFF REQ WBC (4.8 - 10.8 /CUMM) 9.6 RBC (4.20 - 5.40 /CUMM) 4.35 Hgb (12.0 - 16.0 G/DL) 13.0 Hct (37 - 47 %) 38.2 MCV (81.0 - 99.0 FL) 87.8 MCH (27.0 - 31.0 PG) 29.8 RDW (11.5 - 14.5 %) 14.2 Plt Count (130 - 400 /CUMM) 135 MPV (7.4 - 10.4 FL) 11.9 H Gran % (42.2 - 75.2 %) 71.6 Lymphocytes % (20.5 - 51.1 %) 18.9 L Monocytes % (1.7 - 9.3 %) 8.6 Eosinophils % (0 - 5 %) 0.6 Basophils % (0.0 - 2.0 %) 0.3 Absolute Granulocytes (1.4 - 6.5 /CUMM) 6.9 H Absolute Lymphocytes (1.2 - 3.4 /CUMM) 1.8 Absolute Monocytes (0.10 - 0.60 /CUMM) 0.8 H Absolute Eosinophils (0.0 - 0.7 /CUMM) 0.1 Absolute Basophils (0.0 - 0.2 /CUMM) 0 PUBS MCHC (33.0 - 37.0 G/DL) 34.0 Urines Urinalysis HEAVY H Urine Color (YEL,AMB,STR) YEL Urine Clarity (CLEAR) CLEAR Urine pH (5.0 - 8.0) 6.0 Ur Specific [place] (1.001 - 1.035) 1.020 Urine Protein (NEG,<30 MG/DL) >=300 H Urine Ketones (NEG) NEG Urine Nitrite (NEG) NEG Urine Bilirubin (NEG) NEG Urine Urobilinogen (0.1 - 1.0 EU/dl) 0.2 Ur Leukocyte Esterase (NEG) NEG Ur Microscopic SEDIMENT EXAMINED Urine RBC (0 - 5 /HPF) 1-3 Urine WBC (0 - 2 /HPF) 1-3 H Ur Epithelial Cells (NONE,FEW) FEW Urine Hemoglobin (NEG) SMALL H Urine Glucose (N MG/DL) NEG Diagnostic Data EKG Results NSR WITH NSSTTWCS AND T INVERSION V1, V2; PROBABLY NORMAL VARIANT Assessment/Plan Assessment/Plan Assessment: 1. Preeclampsia with severe peripartum hypertension Recommendations: -At the present time, the patient's blood pressure is much better controlled on labetalol. -Continue current medication regimen. -ECG noted, the subtle T-wave inversions in V1 and V2 are likely normal variant. -Echocardiogram pending -Further plans after the echocardiogram. -Once stable, the patient will follow-up with me as an outpatient in several weeks for blood pressure monitoring and management. Consult Acknowledgment - Thank you for your consult request.
--- NOTE | 2016-11-02 10:57 | NUR ---
CHILDBIRTH NURSE IN TO SEE PT, INSTRUCTED PT ON USE OF BREAST PUMP AND CHECKED .
[2016-11-02 12:25] VITALS: BP 140/90
--- NOTE | 2016-11-02 12:56 | Operative Report ---
Operative/Inv Procedure Report Surgery Date: 11/01/16 Name of Procedure: Primary surgeon section Pre-Operative Diagnosis: Severe PIH at 36 weeks Post-Operative Diagnosis: Same Estimated Blood Loss: 500 Surgeon/Plant Engineering Supervisor: ANGELICA LOPEZ MD,MARCOS Kennedy M.D. Anesthesia: spinal Operative/Procedure Note Note: The patient was brought to the operating room placed on the OR table in the sitting position where she underwent spinal anesthetic without complication. She was repositioned into dorsal supine with a block under her right. Venodyne boots had already been placed and were activated. A Hollins catheter also had been placed and was draining clear yellow urine. End was prepped and draped in usual sterile fashion and tested. A Pfannenstiel skin incision made with the scalpel and taken down to layer of the fascia. The fascia was nicked in the midline and extended bilaterally. The rectus muscles were and the peritoneal cavity was entered sharply. A bladder flap was created using Metzenbaum scissors. A low transverse uterine incision was made and a liveborn was delivered atraumatically and handed off to the waiting tacking machine operator. The placenta was then manually removed and the uterus was exteriorized and wiped clean with a wet lap sponge. The uterus closed in 2 layers of 0 Polysorb the second imbricating the first. The abdomen and pelvis were copiously irrigated and the uterus was placed back again into the abdominal cavity and the suture line was visualized noting to be hemostatic. Rectus muscles were reapproximated using one suture of 0 Polysorb. The fascia was then closed also with 0 Polysorb. Subcutaneous tenderness tissues were irrigated and the skin was closed using elie. A dry sterile dressing was applied to the wound the patient was sent to recovery in the intensive care unit in stable condition. All needle, sponge, and instrument counts are correct at the end of procedure 4.
[2016-11-02 16:02] VITALS: BP 138/40
--- NOTE | 2016-11-03 07:23 | ECHOCARDIOGRAM REPORT ---
SE MOLINA Age: 31 : 1985 Gender: F Exam Date: 11/02/2016 16:21 Exam Location: [facility] Ht (in): 65 Wt (lb): 206 BSA: 2.11 BP: 126 / 88 Ordering Physician: FDEE DOUGHERTY MD Referring Physician: Lluvia Marquez MD Technologist: Annalise Leal [facility] Room Number: 112 Indications: HYPERTENSION Rhythm: Sinus Technical Quality: Good FINDINGS Left Ventricle Normal global left ventricular size, wall thickness, systolic function with no obvious regional wall motion abnormalities. Normal left ventricular ejection fraction estimated at 60-65%. False chordae in the left ventricle (normal variant). Right Ventricle Normal right ventricular size and function. Right Atrium Normal right atrial size. Left Atrium Left atrial size at the upper limits of normal. Mitral Valve Mitral valve thickened. Trace to mild mitral regurgitation. Aortic Valve Structurally normal trileaflet aortic valve. No aortic stenosis. Trace aortic regurgitation. Tricuspid Valve Structurally normal tricuspid valve. Trace to mild tricuspid regurgitation. Pulmonic Valve Structurally normal pulmonic valve. Trace to mild pulmonic regurgitation. Pericardium Minimal pericardial effusion (normal variant). Great Vessels Normal size aortic root and proximal ascending aorta. CONCLUSIONS 1. The aortic valve is trileaflet and normal. Trivial aortic insufficiency is present. 2. Minimal thickening of the mitral leaflets is present with minimal to mild mitral insufficiency. 3. A physiologic pericardial effusion is present. 4. The left ventricular chamber size and systolic function are normal. 5. Minimal to mild tricuspid and pulmonic insufficiency are present with no evidence of pulmonary hypertension. 6. A false tendon is present in the LV cavity. Lluvia Marquez M.D. (Electronically Signed) Final Date: 03 Nov 2016 07:22 MEASUREMENTS (Male / Female) Normal Values 2D ECHO LV Diastolic Diameter PLAX 4.5 cm 4.2 - 5.9 / 3.9 - 5.3 cm LV Systolic Diameter PLAX 2.7 cm 2.1 - 4.0 cm LV Fractional Shortening PLAX 40.0 % 25 - 46 % LV Ejection Fraction 2D Teich 70.8 % IVS Diastolic Thickness 1.0 cm LVPW Diastolic Thickness 1.1 cm LV Relative Wall Thickness 0.5 RV Internal Dim ED PLAX 2.7 cm 1.9 - 3.8 cm LVOT Diameter 1.8 cm Aortic Root Diameter 2.9 cm LA Systolic Diameter LX 3.0 cm 3.0 - 4.0 / 2.7 - 3.8 cm LA Volume 37.0 cm 18 - 58 / 22 - 52 cm Ascending Aorta Diameter 2.9 cm DOPPLER AV Peak Velocity 144.0 cm/s AV Peak Gradient 8.3 mmHg AV Mean Velocity 94.6 cm/s AV Mean Gradient 4.0 mmHg AV Velocity Time Integral 35.3 cm LVOT Peak Velocity 95.5 cm/s LVOT Peak Gradient 3.6 mmHg LVOT Mean Velocity 62.1 cm/s LVOT Mean Gradient 2.0 mmHg LVOT Velocity Time Integral 22.0 cm LVOT Stroke Volume 56.0 cm AV Area Cont Eq vti 1.6 cm AV Area Cont Eq pk 1.7 cm MV Peak Velocity 107.0 cm/s MV Peak Gradient 4.6 mmHg MV Mean Velocity 50.7 cm/s MV Mean Gradient 1.0 mmHg Mitral E Point Velocity 104.0 cm/s MV PHT Velocity 108.0 cm/s MV Deceleration [place] 337.0 cm/s MV Pressure Half Time 96.1 ms MV Area PHT 2.3 cm MV Deceleration Time 229.0 ms TR Peak Velocity 114.0 cm/s TR Peak Gradient 5.2 mmHg Right Atrial Pressure 5.0 mmHg Pulmonary Artery Systolic Pressu 10.2 mmHg Right Ventricular Systolic Press 10.2 mmHg PV Peak Velocity 77.5 cm/s PV Peak Gradient 2.4 mmHg PV Mean Velocity 52.7 cm/s PV Mean Gradient 1.0 mmHg PV Velocity Time Integral 21.6 cm LV E' Lateral Velocity 16.2 cm/s Mitral E to LV E' Lateral Ratio 6.4 LV E' Septal Velocity 9.7 cm/s Mitral E to LV E' Septal Ratio 10.8
[2016-11-03] MEDS ORDERED: IBUPROFEN800 M1 PO (21:13)
[2016-11-03] MEDS ORDERED: DOCUSATE SODIU100 M3 PO (21:13)
[2016-11-03] MEDS ORDERED: LABETALOL HCL200 M1 PO (21:13)
[2016-11-03] MEDS ORDERED: PERCOCET 5-3251 EACH PO (21:13)
[2016-11-04 08:57] VITALS: BP 120/70
== END 2016-11-04 10:09 | DRG 540 ==
LOC: CBCO 16:49 → CRI 17:37 → GNO 17:37 → CRI 23:01 → GNO 11-02 17:24
PROVIDERS: Student in an Organized Health Care Education/Training Program; ADMIT Obstetrics & Gynecology
PROC: 10D00Z0 Extraction of Products of Conception, High, Open Approach (ICD-10-PCS; principal; 2016-11-01)
DX: O15.03 Eclampsia complicating pregnancy, third trimester (principal); Z3A.36 36 weeks gestation of pregnancy; Z37.0 Single live birth; O13.4 Gestational [pregnancy-induced] hypertension without significant proteinuria, complicating childbirth; J45.909 Unspecified asthma, uncomplicated; G47.419 Narcolepsy without cataplexy; Z87.891 Personal history of nicotine dependence; O14.23 HELLP syndrome (HELLP), third trimester
CPT/HCPCS: CCU; 36415; 81001; 82436; 82570; 87040; 87086; 88307; 93005; 93010; 93306; G0463; J0131; J0690; J1170; J1200; J1650; J1885; J3475; J3490; J7120

== ENCOUNTER → 2017-11-08 | Day surgery (SDC) | payer OTHER ==
--- NOTE | 2017-11-07 18:27 | History & Physical Pre-Op ---
General Information and HPI History of Present Illness: 32-year-old 3 para 2 with an impacted IUD unable to be removed in the office setting. She is admitted today for D&C hysteroscopy and removal of impacted IUD. Allergies/Medications Allergies: Coded Allergies: latex (RASH 06/09/16) Home Med list Docusate Sodium 100 MG CAPSULE 100 MG PO AT BEDTIME PRN STOOL SOFTENER Ibuprofen 800 MG TABLET 800 MG PO Q6P PRN UTERINE CRAMPING Labetalol HCl 200 MG TABLET 200 MG PO BID hypertension Oxycodone HCl/Acetaminophen (Percocet 5-325 MG Tablet) 5 MG-325 MG TABLET 1-2 TAB PO Q4P PRN PAIN SCALE 4-6 (MODERATE) Pnv#67/Iron Ps/FA Cmb#1/Dha (Vitafol Ultra Softgel) 29 MG IRON-1 MG-200 MG CAPSULE 1 CAP PO DAILY (Reported) Past History Medical History Neurological: NARCOLEPSY EENT: NONE Cardiovascular: NONE Respiratory: asthma Gastrointestinal: NONE Hepatic: NONE Renal: NONE Musculoskeletal: NONE Psychiatric: NONE Endocrine: NONE Blood Disorders: NONE Cancer(s): NONE TEST TECH/Reproductive: NONE Other Medical Hx: Narcolepsy History of MRSA: No History of VRE: No History of CDIFF: No Surgical History Pertinent Surgical History: non-contributory Past Family/Social History Family History Relations & Conditions if any FATHER FH: diabetes mellitus Psychosocial History Services at Home None Functional Ability ADLs Independent: dressing, eating, toileting, bathing. Ambulation: independent IADLs Independent: shopping, housework, finances, food prep, telephone, transportation , medication admin. Review of Systems Review of Systems Constitutional: Reports: no symptoms. EENTM: Reports: no symptoms. Cardiovascular: Reports: no symptoms. Respiratory: Reports: no symptoms. GI: Reports: no symptoms. Genitourinary: Reports: see HPI. Musculoskeletal: Reports: no symptoms. Skin: Reports: no symptoms. Neurological/Psychological: Reports: no symptoms. Hematologic/Endocrine: Reports: no symptoms. Immunologic/Allergic: Reports: no symptoms. All Other Systems: Reviewed and Negative Exam & Diagnostic Data Last 24 Hrs of Vital Signs/I&O Vital signs stable Physical Exam: Chest clear to auscultation Cardiovascular normal S1-S2 pelvic: Deferred OR Extremities no clubbing cyanosis or edema Assessment/Plan Assessment/Plan: Impacted IUD D&C hysteroscopy removal of impacted IUD As Ranked By This Provider Problem List: 1. Malpositioned IUD
[~2017-11-08] MED LIST changes: +DOCUSATE SODIU100 M3 PO; +IBUPROFEN800 M1 PO; +LABETALOL HCL200 M1 PO; +PERCOCET 5-3251 EACH PO
--- NOTE | 2017-11-17 20:45 | Operative Report ---
Operative/Inv Procedure Report Surgery Date: 11/08/17 Name of Procedure: D&C hysteroscopy removal of malpositioned IUD Pre-Operative Diagnosis: Impacted IUD Post-Operative Diagnosis: Malposition IUD Estimated Blood Loss: scant Surgeon/Director Oracle: Oscar Luna MD Anesthesia: local monitored anesthesi Operative/Procedure Note Note: The patient was brought to the operating room and placed on the OR table in the dorsal supine position. She was given adequate anesthesia and repositioned in a modified dorsal lithotomy. She was prepped and draped in usual sterile fashion. A weighted speculum was inserted into the vagina with the help with a Racquel retractor single-tooth tenaculum was attached to the anterior lip of the cervix. Cervix was injected with 1% lidocaine with epinephrine to have cc in each quadrant. An endocervical curettage was performed. Cervix was serially dilated. Hysteroscope was placed in the saline infusion was activated. The IUD was clearly seen in the malposition turned 90. The hysteroscope was then removed and forceps are placed into the uterus and the IUD was removed intact. This was sent to pathology. An endometrial curettage was also performed at this point. Hemostasis was verified isthmus removed and the patient was awakened and sent to recovery in good condition. All needle, sponge, and instrument counts were correct at the end of the procedure 2.
== END ==
LOC: STS 03:01
DX: T83.39XA Other mechanical complication of intrauterine contraceptive device, initial encounter (principal); G47.419 Narcolepsy without cataplexy
CPT/HCPCS: 81025; 88305; J2001